=== PATIENT | male | born 1945 ===

== ENCOUNTER 2018-04-20 12:22 | Emergency (ER) | payer OTHER, MEDICARE ==
[2018-04-20 13:02] VITALS: BP 172/98; PULSE 87; TEMP 98.1; O2SAT 98; BMI 22.6
[2018-04-20] MEDS ORDERED: Lidocaine 5% Patch TD ONE (13:12)
--- NOTE | 2018-04-20 13:47 | CT ---
Date of service: 04/20/2018 PROCEDURE: CT HEAD WITHOUT CONTRAST. HISTORY: headache COMPARISON: None available. TECHNIQUE: Axial computed tomography images were obtained through the head/brain without intravenous contrast. Radiation dose: Total exam DLP = 992.57 mGy-cm. This CT exam was performed using one or more of the following dose reduction techniques: Automated exposure control, adjustment of the mA and/or kV according to patient size, and/or use of iterative reconstruction technique. FINDINGS: HEMORRHAGE: No intracranial hemorrhage. BRAIN: Diffuse atrophy with prominence of the ventricles and sulci noted. No mass effect or edema. Scattered periventricular and subcortical white matter hypodensities, which are nonspecific, but often seen with chronic microvascular ischemic disease. Please note that MRI with diffusion imaging is more sensitive in the detection of acute ischemic event. VENTRICLES: No hydrocephalus. CALVARIUM: Unremarkable. PARANASAL SINUSES: Unremarkable as visualized. No significant inflammatory changes. MASTOID AIR CELLS: Unremarkable as visualized. No inflammatory changes. OTHER FINDINGS: None. IMPRESSION: No acute intracranial pathology identified. Findings as above.
--- NOTE | 2018-04-20 13:53 | CT ---
Date of service: 04/20/2018 PROCEDURE: CT Lumbar Spine without contrast HISTORY: s/p fall lower back pain COMPARISON: None available. TECHNIQUE: Axial computed tomography images were obtained of the lumbar spine without the use of intravenous contrast. Coronal and sagittal reformatted images were created and reviewed. Radiation dose: Total exam DLP = 388 mGy-cm. This CT exam was performed using one or more of the following dose reduction techniques: Automated exposure control, adjustment of the mA and/or kV according to patient size, and/or use of iterative reconstruction technique. FINDINGS: VERTEBRAE: Unremarkable. No fracture. Normal alignment. DISCS/SPINAL CANAL/NEURAL FORAMINA: L1-2: Unremarkable. L2-3: Unremarkable. L3-4: Mild disc bulge L4-5: Disc degeneration with moderate disc bulge. Facet arthropathy. This produces a moderate degree of spinal stenosis L5-S1: Unremarkable. PARASPINAL SOFT TISSUES: Unremarkable. OTHER FINDINGS: None. IMPRESSION: No evidence of compression fracture. No acute findings.
--- NOTE | 2018-04-20 13:57 | CT ---
Date of service: 04/20/2018 PROCEDURE: CT Cervical Spine without contrast HISTORY: fall COMPARISON: None available. TECHNIQUE: Axial computed tomography images were obtained of the cervical spine without the use of intravenous contrast. Coronal and sagittal reformatted images were created and reviewed. Radiation dose: Total exam DLP = 435 mGy-cm. This CT exam was performed using one or more of the following dose reduction techniques: Automated exposure control, adjustment of the mA and/or kV according to patient size, and/or use of iterative reconstruction technique. FINDINGS: VERTEBRAE: No fracture. Normal alignment. No destructive bony lesion. DISCS/SPINAL CANAL/NEURAL FORAMINA: No significant central canal or neural foraminal stenosis. Discs heights are grossly preserved. PARASPINAL SOFT TISSUES: Unremarkable. OTHER FINDINGS: None. IMPRESSION: No acute findings
--- NOTE | 2018-04-20 14:00 | RAD ---
PROCEDURE: Right Hip and pelvis Radiographs. HISTORY: s/p fall w/ pain COMPARISON: None. FINDINGS: BONES: Normal. No fracture. JOINTS: Normal. SOFT TISSUES: Normal. OTHER FINDINGS: None. IMPRESSION: Normal radiographs of right hip.
--- NOTE | 2018-04-20 14:27 | ED PDOC ---
Arrival/HPI - General Chief Complaint: Trauma Time Seen by Provider: 04/20/18 12:43 Past Medical History - Infectious Disease Hx of Infectious Diseases: None - Tetanus Immunization Tetanus Immunization: Unknown - Cardiac Hx Cardiac Disorders: Yes Hx Hypertension: Yes - Pulmonary Hx Respiratory Disorders: No - Neurological Hx Neurological Disorder: No - HEENT Hx HEENT Disorder: No - Renal Hx Renal Disorder: No - Endocrine/Metabolic Hx Endocrine Disorders: No - Hematological/Oncological Hx Blood Disorders: No - Integumentary Hx Dermatological Disorder: No - Musculoskeletal/Rheumatological Hx Musculoskeletal Disorders: No - Gastrointestinal Hx Gastrointestinal Disorders: No - Genitourinary/Gynecological Hx Genitourinary Disorders: No - Psychiatric Hx Psychophysiologic Disorder: No Hx Depression: No Hx Emotional Abuse: No Hx Physical Abuse: No Hx Substance Use: No - Past Surgical History Past Surgical History: No Previous - Suicidal Assessment Feels Threatened In Home Enviroment: No Family/Social History Smoking Status: Light Smoker < 10 Cigarettes Daily Hx Alcohol Use: No Hx Substance Use: No Allergies/Home Meds Allergies/Adverse Reactions: Allergies No Known Allergies Allergy (Verified 04/20/18 12:59) Home Medications: Home Meds Medication Instructions Recorded Confirmed Atorvastatin [Lipitor] 10 mg PO DAILY 04/15/14 04/17/14 Lisinopril 10 mg PO DAILY 04/15/14 04/17/14 Physical Exam Vital Signs Temp Pulse Resp BP Pulse Ox 04/20/18 12:59 98.1 F 87 17 172/98 H 98 Medical Decision Making - RAD Interpretation Radiology Orders: 04/20/18 13:11 CERVICAL SPINE W/O CONTRAST [CT] Stat HEAD W/O CONTRAST [CT] Stat 04/20/18 13:12 LUMBAR SPINE W/O CONTRAST [CT] Stat HIP MIN 2V W/ PELVIS RT [RAD] Stat - Medication Orders Current Medication Orders: Discontinued Medications Ketorolac Tromethamine (Toradol) 60 mg IM STAT STA Stop: 04/20/18 13:13 Last Admin: 04/20/18 14:13 Dose: 60 mg MAR Pain Assessment Document 04/20/18 14:13 [email or web address] (Rec: 04/20/18 14:13 [email or web address] [id number]) Pain Reassessment Is this a pain reassessment? No Sleep Is patient sleeping during reassessment? No Presence of Pain Presence of Pain Yes Pain Scale Used Pain Scale Used Numeric Location Left, Right or Bilateral Right Pain Location Body Site Hip Description Description Constant Intensity of Pain at present 7 Pain Behavior Facial Grimacing Aggravating Factors Changing Position Alleviating Factors/Management Medication Techniques Alleviating Factors Medication IM Administration Charges Document 04/20/18 14:13 [email or web address] (Rec: 04/20/18 14:13 [email or web address] [id number]) Charges for Administration # of IM Administrations 1 Lidocaine (Lidoderm) 1 ea TD ONCE ONE Stop: 04/20/18 13:13 Last Admin: 04/20/18 14:10 Dose: 1 ea MAR Transdermal Patch Site Document 04/20/18 14:10 [email or web address] (Rec: 04/20/18 14:13 [email or web address] [id number]) Transdermal Patch Site Transdermal Patch Site Right Lower Back Disposition/Present on Arrival - Present on Arrival Any Indicators Present on Arrival: No History of DVT/PE: No History of Uncontrolled Diabetes: No Urinary Catheter: No History of Decub. Ulcer: No History Surgical Site Infection Following: None - Disposition Have Diagnosis and Disposition been Completed?: Yes Diagnosis: Fall, Right hip pain Disposition: HOME/ ROUTINE Disposition Time: 14:21 Patient Plan: Discharge Patient Problems: Current Active Problems Problem Status Onset Fall Acute Right hip pain Acute Discharge Instructions (ExitCare): Preventing Falls in the Older Adult, Hip Pain (DC) Prescriptions: Ibuprofen [Motrin Tab] 800 mg PO Q6H PRN 6 Days #24 tab PRN Reason: Pain, Moderate (4-7) Lidocaine 5% [Lidoderm] 1 ea TD Q12H 4 Days #4 patch Referrals: Teri Bell MD [Medical Doctor] - Follow up with primary [facility] at [facility] [Outside] - Follow up with primary Forms: [employer] (Frisian), WORK NOTE
--- NOTE | 2018-04-20 14:27 | ED PDOC ---
Arrival/HPI - General Chief Complaint: Trauma Time Seen by Provider: 04/20/18 12:43 Historian: Patient - History of Present Illness Narrative History of Present Illness (Text): 04/20/18 72 year old male who presents to the Emergency Department with right hip and buttock pain secondary to fall. Today at 10:00 patient was at a store when he slipped on a wet floor and landed on his right buttock/hip. He was subsequently able to ambulate on his own but noticed persistent right hip and buttock pain. He denies being on blood thinners. Patient denies head injury, LOC, neck pain, or any other complaints. Time/Duration: 4-6 hours Symptom Onset: Sudden Context: Slipped Past Medical History - Provider Review Nursing Documentation Reviewed: Yes - Infectious Disease Hx of Infectious Diseases: None - Tetanus Immunization Tetanus Immunization: Unknown - Cardiac Hx Cardiac Disorders: Yes Hx Hypertension: Yes - Pulmonary Hx Respiratory Disorders: No - Neurological Hx Neurological Disorder: No - HEENT Hx HEENT Disorder: No - Renal Hx Renal Disorder: No - Endocrine/Metabolic Hx Endocrine Disorders: No - Hematological/Oncological Hx Blood Disorders: No - Integumentary Hx Dermatological Disorder: No - Musculoskeletal/Rheumatological Hx Musculoskeletal Disorders: No - Gastrointestinal Hx Gastrointestinal Disorders: No - Genitourinary/Gynecological Hx Genitourinary Disorders: No - Psychiatric Hx Psychophysiologic Disorder: No Hx Depression: No Hx Emotional Abuse: No Hx Physical Abuse: No Hx Substance Use: No - Past Surgical History Past Surgical History: No Previous - Suicidal Assessment Feels Threatened In Home Enviroment: No Family/Social History - Physician Review Nursing Documentation Reviewed: Yes Family/Social History: No Known Family HX Smoking Status: Light Smoker < 10 Cigarettes Daily Hx Alcohol Use: No Hx Substance Use: No Allergies/Home Meds Allergies/Adverse Reactions: Allergies No Known Allergies Allergy (Verified 04/20/18 12:59) Home Medications: Home Meds Medication Instructions Recorded Confirmed Atorvastatin [Lipitor] 10 mg PO DAILY 04/15/14 04/17/14 Lisinopril 10 mg PO DAILY 04/15/14 04/17/14 Review of Systems - Physician Review All systems were reviewed & negative as marked: Yes - Review of Systems Musculoskeletal: Arthralgias (right hip pain), Myalgias (right buttock pain.). absent: Neck Pain Neurological: Other (head injury, LOC) Physical Exam Vital Signs Reviewed: Yes Vital Signs Temp Pulse Resp BP Pulse Ox 04/20/18 12:59 98.1 F 87 17 172/98 H 98 Temperature: Afebrile Blood Pressure: Hypertensive Pulse: Regular Respiratory Rate: Normal Appearance: Positive for: Well-Appearing Mental Status: Positive for: Alert and Oriented X 3 - Systems Exam Head: Present: Atraumatic, Normocephalic Pupils: Present: PERRL Extroacular Muscles: Present: EOMI Conjunctiva: Present: Normal Mouth: Present: Moist Mucous Membranes Neck: Present: Normal Range of Motion Respiratory/Chest: Present: Clear to Auscultation, Good Air Exchange. No: Respiratory Distress, Accessory Muscle Use Cardiovascular: Present: Regular Rate and Rhythm, Normal S1, S2. No: Murmurs Abdomen: No: Tenderness, Distention, Peritoneal Signs Back: Present: Normal Inspection Upper Extremity: Present: Normal Inspection. No: Cyanosis, Edema Lower Extremity: Present: NORMAL PULSES (Distal pulses intact.), Tenderness ( Right hip tenderness), Other ((+) right leg raise pain). No: Edema Neurological: Present: GCS=15, CN II-XII Intact, Speech Normal Skin: Present: Warm, Dry, Normal Color. No: Rashes Psychiatric: Present: Alert, Oriented x 3, Normal Insight, Normal Concentration Medical Decision Making ED Course and Treatment: 04/20/18 Impression: 72 year old male who is complaining of right hip and buttock pain secondary to slip. Differential Diagnosis included but are not limited to: Hip fracture Hip dislocation Lumbar stenosis Skull fracture Plan: -- Cervical Spine CT without contrast -- Head CT without contrast -- Lumbar Spine CT without contrast -- Hip X-ray -- Toradol -- Lidoderm -- Reassess and disposition Prior Visits: Notes and results from previous visits were reviewed. Progress Notes: 04/20/18 14:17 On reevaluation the patient feels better and is in no acute distress. I have discussed the results and plan with the patient, who expresses understanding. Patient given the opportunity to ask question, all questions were answered and there is agreement with the plan to discharge the patient home with prescription for Lidoderm and Motrin. Patient is stable for discharge. Patient was instructed to follow up with physician/clinic in 1-2 days or return if symptoms persist/worsen or new concerning symptoms arise. - RAD Interpretation Narrative RAD Interpretations (Text): 04/20/[address] without contrast: Creator : Jagruti Gonzáles MD IMPRESSION: No acute intracranial pathology identified. Findings as above. Cervical Spine CT without contrast: Creator : Marvin Ordaz MD IMPRESSION: No acute findings Lumbar Spine CT without contrast: Creator : Marvin Ordaz MD IMPRESSION: No evidence of compression fracture. No acute findings. Hip/Pelvis X-ray: Creator : Marvin Ordaz MD IMPRESSION: Normal radiographs of right hip. Radiology Orders: 04/20/18 13:11 CERVICAL SPINE W/O CONTRAST [CT] Stat HEAD W/O CONTRAST [CT] Stat 04/20/18 13:12 LUMBAR SPINE W/O CONTRAST [CT] Stat HIP MIN 2V W/ PELVIS RT [RAD] Stat Intake Counselor: Radiologist - Medication Orders Current Medication Orders: Discontinued Medications Ketorolac Tromethamine (Toradol) 60 mg IM STAT STA Stop: 04/20/18 13:13 Last Admin: 04/20/18 14:13 Dose: 60 mg MAR Pain Assessment Document 04/20/18 14:13 [email or web address] (Rec: 04/20/18 14:13 [email or web address] [id number]) Pain Reassessment Is this a pain reassessment? No Sleep Is patient sleeping during reassessment? No Presence of Pain Presence of Pain Yes Pain Scale Used Pain Scale Used Numeric Location Left, Right or Bilateral Right Pain Location Body Site Hip Description Description Constant Intensity of Pain at present 7 Pain Behavior Facial Grimacing Aggravating Factors Changing Position Alleviating Factors/Management Medication Techniques Alleviating Factors Medication IM Administration Charges Document 04/20/18 14:13 [email or web address] (Rec: 04/20/18 14:13 [email or web address] [id number]) Charges for Administration # of IM Administrations 1 Lidocaine (Lidoderm) 1 ea TD ONCE ONE Stop: 04/20/18 13:13 Last Admin: 04/20/18 14:10 Dose: 1 ea MAR Transdermal Patch Site Document 04/20/18 14:10 [email or web address] (Rec: 04/20/18 14:13 [email or web address] [id number]) Transdermal Patch Site Transdermal Patch Site Right Lower Back - Scribe Statement The provider has reviewed the documentation as recorded by the Scribkarin Randall Provider Scribe Attestation: All medical record entries made by the Scribe were at my direction and personally dictated by me. I have reviewed the chart and agree that the record accurately reflects my personal performance of the history, physical exam, medical decision making, and the department course for this patient. I have also personally directed, reviewed, and agree with the discharge instructions and disposition. Disposition/Present on Arrival - Present on Arrival History of DVT/PE: No History of Uncontrolled Diabetes: No Urinary Catheter: No History of Decub. Ulcer: No History Surgical Site Infection Following: None - Disposition Diagnosis: Fall, Right hip pain Disposition: HOME/ ROUTINE Discharge Instructions (ExitCare): Preventing Falls in the Older Adult, Hip Pain (DC) Prescriptions: Ibuprofen [Motrin Tab] 800 mg PO Q6H PRN 6 Days #24 tab PRN Reason: Pain, Moderate (4-7) Lidocaine 5% [Lidoderm] 1 ea TD Q12H 4 Days #4 patch Referrals: [facility] at [facility] [Outside] - Follow up with primary Teri Bell MD [Medical Doctor] - Follow up with primary Forms: [employer] (E[place]ian), WORK NOTE
[2018-04-20 14:49] VITALS: RESP 19
== END 2018-04-20 14:48 | disposition home or self-care (01) ==
LOC: ED 12:22
DX: M25.551 Pain in right hip (principal); F17.210 Nicotine dependence, cigarettes, uncomplicated; I10 Essential (primary) hypertension
CPT/HCPCS: 70450; 72125; 72131; 73502; 96372; 99283; J1885